=== PATIENT | female | born 1960 | race Caucasian/White ===

== ENCOUNTER → 2019-01-25 10:56 | Outpatient (CLI) | payer OTHER, SELFPAY ==
--- NOTE | 2019-01-25 | DI.RAD.S_ITS ---
PROCEDURE: XR KNEE RT 1TO2V INDICATIONS: BILATERAL KNEE PAIN TECHNIQUE: 2 views of the knee were acquired. COMPARISON: None. FINDINGS: Bones: Moderate tricompartmental osteoarthritis is seen more prominent in lateral femoral tibial compartment. No fractures or dislocations. No suspicious bony lesions. Soft tissues: Small to moderate joint effusion is seen. No suspicious soft tissue calcifications. Marked medial right knee soft tissue swelling is noted. IMPRESSION: Moderate tricompartmental osteoarthritis. Marked medial soft tissue swelling. Small to moderate amount of joint effusion. No acute fracture or dislocation. Dictated by: Segundo Goncalves M.D. on 01/25/2019 at 12:26 Approved by: Segundo Goncalves M.D. on 01/25/2019 at 12:27
--- NOTE | 2019-01-25 | DI.RAD.S_ITS ---
PROCEDURE: XR KNEE LT 1TO2V INDICATIONS: BILATERAL KNEE PAIN TECHNIQUE: 2 views of the knee were acquired. COMPARISON: None. FINDINGS: Bones: Mild to moderate tricompartmental osteoarthritis is seen more prominent in medial femoral tibial compartment. No fractures or dislocations. No suspicious bony lesions. Soft tissues: Moderate joint effusion. No suspicious soft tissue calcifications. IMPRESSION: [id number] tricompartmental osteoarthritis more prominent in medial femoral tibial compartment. Moderate joint effusion. Dictated by: Segundo Goncalves M.D. on 01/25/2019 at 12:27 Approved by: Segundo Goncalves M.D. on 01/25/2019 at 12:28
== END ==
DX: M25.562 Pain in left knee (principal); M25.561 Pain in right knee; M17.0 Bilateral primary osteoarthritis of knee; M25.462 Effusion, left knee; M25.461 Effusion, right knee
CPT/HCPCS: 73560